=== PATIENT | male | born 1990 | race Caucasian/White ===

== ENCOUNTER 2016-04-12 16:54 | Emergency (ER) | payer SELFPAY ==
[2016-04-12 17:22] VITALS: BP 108/89
--- NOTE | 2016-04-12 17:41 | UC ---
Hand/Wrist HPI - HPI Summary HPI Summary: punched car window, broke it. Now worried that he may have glass in his hand, or may have broken his hand. Right-handed. - History Of Current Complaint Chief Complaint: [place] Stated Complaint: RIGHT HAND POSSIBLE FB Time Seen by Provider: 04/12/16 17:23 Hx Obtained From: Patient, Family/Pattern Vault Clerk - Onset/Duration: Sudden Onset, Lasting Hours - 2 Severity Initially: Moderate Severity Currently: Mild Character Of Pain: Dull, Aching, Throbbing, Stiffness Aggravating Factor(s): Movement Alleviating: Rest, Ice Associated Signs And Symptoms: Positive: Swelling - Risk Factors Compartment Syndrome Risk Factors: Pain - Allergies/Home Medications Allergies/Adverse Reactions: Allergies Allergy/AdvReac Type Severity Reaction Status Date / Time Bee Venom Allergy Anaphylatic Verified 04/12/16 17:17 Shock Cyclobenzaprine Allergy stomach Verified 04/12/16 17:17 upset Home Medications: Home Medications Epinephrine [Epipen 2-Luis] 0.3 mg IM SEE INSTRUCTIONS PRN 04/12/16 [History Confirmed 04/12/16] PMH/Surg Hx/FS Hx/Imm Hx Endocrine History Of: Denies: Diabetes, Thyroid Disease Cardiovascular History Of: Denies: Cardiac Disorders, Hypertension, Pacemaker/ICD Respiratory History Of: Denies: Asthma GI/ History Of: Reports: Kidney Stones Denies: Renal Disease - Surgical History Surgical History: Yes Surgery Procedure, Year, and Place: [place] Teeth Extraction, 2016, [place]; Ear Surgeries x 10; T&A, ~1994 - Family History Known Family History: Positive: Hypertension - Social History Occupation: Employed Full-time Lives: With Family Alcohol Use: None Substance Use Type: None Smoking Status (MU): Heavy Every Day Tobacco Smoker Type: Smokeless Tobacco Amount Used/How Often: 1/2 Can Per Day Length of Time of Smoking/Using Tobacco: 5 Years Have You Smoked in the Last Year: Yes Household Exposure Type: Cigarettes - Immunization History Most Recent Tetanus Shot: "thirteen" years ago Review of Systems Constitutional: Negative Skin: Other Eyes: Negative ENT: Negative Respiratory: Negative Cardiovascular: Negative Gastrointestinal: Negative Genitourinary: Negative Motor: Negative Neurovascular: Negative Musculoskeletal: Arthralgia, Decreased ROM Neurological: Negative Psychological: Negative All Other Systems Reviewed And Are Negative: Yes Physical Exam Triage Information Reviewed: Yes Appearance: Well-Appearing, No Pain Distress, Well-Nourished Vital Signs: Initial Vital Signs Temp 98.4 F 04/12/16 17:14 Pulse 84 04/12/16 17:14 Resp 16 04/12/16 17:14 BP 108/89 04/12/16 17:14 Pulse Ox 99 04/12/16 17:14 Vital Signs Reviewed: Yes Eye Exam: Normal Neck exam: Normal Respiratory Exam: Normal Cardiovascular Exam: Normal Abdominal Exam: Normal Musculoskeletal Exam: Other - right hand with diffuse swelling and tenderness over 5th MC. Shallow laceration at base of lateral 5th finger Neurological Exam: Normal Psychological Exam: Normal Skin Exam: Normal Diagnostics - Laboratory Diagnostic Studies Completed/Ordered: xray neg Hand/Wrist Course/Dx - Differential Dx/Diagnosis Differential Diagnosis/HQI/PQRI: Foreign Body, Fracture, Sprain Provider Diagnoses: contusion right hand Discharge - Discharge Plan Condition: Stable Disposition: HOME Patient Education Materials: Contusion in Adults (ED) Referrals: CARSNO Cameron [Primary Care Provider] -
[2016-04-12] MEDS ORDERED: Tetan/Diph/Pertus SYR(Tdap)* 0.5 ML SYR(BOOSTRIX) use SYR IM ONE (17:50)
--- NOTE | 2016-04-12 18:09 | RAD ---
Indication: Right Hand injury. Evaluate for foreign body or fracture. 4 views of the right hand demonstrates no evidence of a radiopaque foreign body. No definite fracture is identified. IMPRESSION: No fracture or radiopaque foreign body is identified.
== END 2016-04-12 18:05 | disposition home or self-care (01) ==
LOC: UCCORT 16:54
DX: S60.221A Contusion of right hand, initial encounter (principal); W25.XXXA Contact with sharp glass, initial encounter; Y93.9 Activity, unspecified; F17.210 Nicotine dependence, cigarettes, uncomplicated; Z23 Encounter for immunization
CPT/HCPCS: 90471; 90715; 99212; G0463

== ENCOUNTER 2016-04-19 11:58 | Emergency (ER) | payer SELFPAY ==
[2016-04-19 12:21] VITALS: BP 125/84
--- NOTE | 2016-04-19 12:36 | UC ---
UC General HPI - HPI Summary HPI Summary: patient is complaining of sharp stabbing left sided, woke him out of bed this morning. no pain at this time. it started on left flank and moved to the side, has hx of kidney stones. no fever. no dysuria. - History of Current Complaint Chief Complaint: UCAbdominalPain Stated Complaint: BACK PAIN Time Seen by Provider: 04/19/16 12:25 Hx Obtained From: Patient Onset/Duration: Sudden Onset, Lasting Hours Timing: Constant Onset Severity: Severe Current Severity: None Associated Signs & Symptoms: Positive: Back Pain - Allergy/Home Medications Allergies/Adverse Reactions: Allergies Allergy/AdvReac Type Severity Reaction Status Date / Time Bee Venom Allergy Anaphylatic Verified 04/19/16 12:18 Shock Cyclobenzaprine Allergy stomach Verified 04/19/16 12:18 upset PMH/Surg Hx/FS Hx/Imm Hx Previously Healthy: Yes Endocrine History Of: Denies: Diabetes, Thyroid Disease Cardiovascular History Of: Denies: Cardiac Disorders, Hypertension, Pacemaker/ICD Respiratory History Of: Denies: Asthma GI/ History Of: Reports: Kidney Stones Denies: Renal Disease - Surgical History Surgical History: Yes Surgery Procedure, Year, and Place: [place] Teeth Extraction, 2016, [place]; Ear Surgeries x 10; T&A, ~1993 - Family History Known Family History: Positive: Hypertension - Social History Alcohol Use: None Substance Use Type: None Smoking Status (MU): Heavy Every Day Tobacco Smoker Type: Smokeless Tobacco Amount Used/How Often: 1/2 Can Per Day Length of Time of Smoking/Using Tobacco: 5 Years Have You Smoked in the Last Year: Yes Household Exposure Type: Cigarettes - Immunization History Most Recent Influenza Vaccination: January 2016 Most Recent Tetanus Shot: 04/12/16 Review of Systems Constitutional: Negative Skin: Negative Eyes: Negative ENT: Negative Respiratory: Negative Cardiovascular: Negative Gastrointestinal: Negative Genitourinary: Negative Motor: Negative Musculoskeletal: Negative, Other: - left flank and side pain Neurological: Negative Psychological: Negative All Other Systems Reviewed And Are Negative: Yes Physical Exam Triage Information Reviewed: Yes Appearance: Well-Appearing, No Pain Distress, Well-Nourished Vital Signs: Initial Vital Signs Temp 98.2 F 04/19/16 12:15 Pulse 76 04/19/16 12:15 Resp 16 04/19/16 12:15 BP 125/84 04/19/16 12:15 Pulse Ox 98 04/19/16 12:15 Vital Signs Reviewed: Yes Eye Exam: Normal Eyes: Positive: Conjunctiva Clear ENT Exam: Normal ENT: Positive: Normal ENT inspection, Hearing grossly normal, Pharynx normal, TMs normal Dental Exam: Normal Neck exam: Normal Neck: Positive: Supple, Nontender, No Lymphadenopathy Respiratory Exam: Normal Respiratory: Positive: Chest non-tender, Lungs clear, Normal breath sounds Cardiovascular Exam: Normal Cardiovascular: Positive: RRR, No Murmur, Pulses Normal Abdomen Description: Positive: No Organomegaly, Soft, CVA Tenderness (L), Other : - no palpable masses, no organomegaly, tender in LLQ, last BM this moring Bowel Sounds: Positive: Present Musculoskeletal Exam: Normal Musculoskeletal: Positive: Strength Intact, ROM Intact, No Edema Neurological Exam: Normal Neurological: Positive: Alert Psychological Exam: Normal Skin Exam: Normal Course/Dx - Course Course Of Treatment: history obtained, exam performed, no difficulty urinating, currently pain is mild, like a muscle aches, but comes and goes with stabbing sensation. medications prescribed, UA positive for BLood. - Differential Dx - Multi-Symptom Differential Diagnoses: Urinary Tract Infection, Other - muscle strain, constipation, diverticulitis, kidnesy stone Provider Diagnoses: hematuria. left flank pain Discharge - Discharge Plan Condition: Stable Disposition: HOME Prescriptions: HYDROcodone/ACETAMIN 5-325 MG* [[place] 5-325 TAB*] 1 tab PO Q8H PRN #15 tab MDD 15 mg PRN Reason: Pain Tamsulosin CAP* [Flomax CAP*] 0.4 mg PO BEDTIME #10 cap Patient Education Materials: Kidney Stones (ED) Additional Instructions: Increse your fluid intake, take the medication as prescribed. use the pain medication when severe pain is happening. strain your urine, if symptoms persist follow up here, the ER or your doctors office.
== END 2016-04-19 13:04 | disposition home or self-care (01) ==
LOC: UCCORT 11:58
DX: M54.5 Low back pain (principal); R31.9 Hematuria, unspecified; Z87.442 Personal history of urinary calculi; Z88.8 Allergy status to other drugs, medicaments and biological substances; F17.210 Nicotine dependence, cigarettes, uncomplicated
CPT/HCPCS: 99212; G0463

== ENCOUNTER 2016-05-03 18:47 | Emergency (ER) | payer SELFPAY ==
[2016-05-03 19:05] VITALS: BP 129/67
--- NOTE | 2016-05-03 19:59 | UC ---
Respiratory Complaint HPI - HPI Summary HPI Summary: productive cough. SOB with exertion. Subjective fevers. ST and ear pressure. Girlfriend with same symptoms. No asthma. - History of Current Complaint Chief Complaint: UCRespiratory Stated Complaint: COUGH,FEVER Time Seen by Provider: 05/03/16 19:48 Hx Obtained From: Patient Onset/Duration: Gradual Onset, Lasting Days - 4 Timing: Constant Severity Currently: Mild Character: Cough: Productive Aggravating Factors: Exertion, Recumbent Position Associated Signs And Symptoms: Positive: Fever, Chills, Dizziness, URI, Nasal Congestion, Hoarseness, Sinus Discomfort - Risk Factors Pulmonary Embolism Risk Factors: Negative Cardiac Risk Factors: Negative Pseudomonas Risk Factors: Negative Tuberculosis Risk Factors: Negative - Allergies/Home Medications Allergies/Adverse Reactions: Allergies Allergy/AdvReac Type Severity Reaction Status Date / Time Bee Venom Allergy Anaphylatic Verified 05/03/16 19:05 Shock Cyclobenzaprine Allergy stomach Verified 05/03/16 19:05 upset PMH/Surg Hx/FS Hx/Imm Hx Previously Healthy: Yes Endocrine History Of: Denies: Diabetes, Thyroid Disease Cardiovascular History Of: Denies: Cardiac Disorders, Hypertension, Pacemaker/ICD Respiratory History Of: Denies: Asthma GI/ History Of: Reports: Kidney Stones Denies: Renal Disease - Surgical History Surgical History: Yes Surgery Procedure, Year, and Place: [place] Teeth Extraction, 2016, [place]; Ear Surgeries x 10; T&A, ~1993 - Family History Known Family History: Positive: Hypertension - Social History Occupation: Employed Full-time Lives: With Family Alcohol Use: None Substance Use Type: None Smoking Status (MU): Never Smoked Tobacco Type: Smokeless Tobacco Amount Used/How Often: 1/2 Can Per Day Length of Time of Smoking/Using Tobacco: 5 Years Have You Smoked in the Last Year: Yes Household Exposure Type: Cigarettes - Immunization History Most Recent Influenza Vaccination: January 2016 Most Recent Tetanus Shot: 04/12/16 Review of Systems Constitutional: Fever, Chills, Fatigue Skin: Negative Eyes: Negative ENT: Sore Throat, Ear Ache, Nasal Discharge Respiratory: Shortness Of Breath, Cough Cardiovascular: Negative Gastrointestinal: Negative Genitourinary: Negative Motor: Negative Neurovascular: Negative Musculoskeletal: Negative Neurological: Negative Psychological: Negative All Other Systems Reviewed And Are Negative: Yes Physical Exam Triage Information Reviewed: Yes Appearance: Well-Appearing, No Pain Distress, Well-Nourished Vital Signs: Initial Vital Signs Temp 99.6 F 05/03/16 19:00 Pulse 94 05/03/16 19:00 Resp 24 05/03/16 19:00 BP 129/67 05/03/16 19:00 Pulse Ox 98 05/03/16 19:00 Vital Signs Reviewed: Yes Eye Exam: Normal ENT: Positive: Pharyngeal erythema - mild, Nasal congestion, TM bulging, TM dull , TM red - lots of scarring bilat; pt says he has had numerous surgeries as a child, frequent OM as adult. Negative: Tonsillar swelling, Tonsillar exudate, Trismus, Muffled/hoarse voice Neck exam: Normal Neck: Positive: Supple Respiratory Exam: Normal Respiratory: Positive: Lungs clear, Normal breath sounds, No respiratory distress, No accessory muscle use Cardiovascular Exam: Normal Musculoskeletal Exam: Normal Neurological Exam: Normal Psychological Exam: Normal Skin Exam: Normal UC Diagnostic Evaluation - Laboratory O2 Sat by Pulse Oximetry: 98 Respiratory Course/Dx - Differential Dx/Diagnosis Differential Diagnosis/HQI/PQRI: Bronchitis, Lower Resp Infection, Sinusitis Provider Diagnoses: URI; bilat OM Discharge - Discharge Plan Condition: Stable Disposition: HOME Prescriptions: Azithromycin TAB* [Zithromax TAB (Z-JAKUB) 250 mg #6 tabs] 2 tab PO .TODAY, THEN 1 DAILY #1 jakub Guaifenesin-Codeine [Cheratussin AC] 1 - 2 teasp PO Q4HR PRN #120 ml MDD 30ml PRN Reason: Cough Patient Education Materials: Otitis Media (ED), Upper Respiratory Infection (ED ) Referrals: CARSON Cameron [Primary Care Provider] - Additional Instructions: The antibiotic will help clear up your ear infections, but it won't help with the cough. The cough is part of a viral illness, and those can drag on for several weeks
== END 2016-05-03 20:00 | disposition home or self-care (01) ==
LOC: UCCORT 18:47
DX: J06.9 Acute upper respiratory infection, unspecified (principal); H66.93 Otitis media, unspecified, bilateral; F17.220 Nicotine dependence, chewing tobacco, uncomplicated
CPT/HCPCS: 99212; G0463

== ENCOUNTER 2017-09-06 21:34 | Emergency (ER) | payer SELFPAY ==
[2017-09-06 21:47] VITALS: BP 125/87
--- NOTE | 2017-09-06 22:07 | ED ---
Skin Complaint - HPI Summary HPI Summary: 26 yr old with irritation to right anterior ankle and also to posterior left ankle. he was out playing ball in tall grass, and has itching to these localized spots. No redness, no other symptoms. - History of Current Complaint Chief Complaint: UCSkin Time Seen by Provider: 09/06/17 21:59 Stated Complaint: SKIN COMPLAINT Pain Intensity: 6 - Allergy/Home Medications Allergies/Adverse Reactions: Allergies Allergy/AdvReac Type Severity Reaction Status Date / Time MS Bee Venom [Bee Venom] Allergy Anaphylatic Verified 05/03/16 19:05 Shock MS Cyclobenzaprine Allergy stomach Verified 05/03/16 19:05 [Cyclobenzaprine] upset Home Medications: Home Medications Ranitidine TAB (NF) [Zantac TAB (NF)] 1 tab DAILY 09/06/17 [History Confirmed ] PMH/Surg Hx/FS Hx/Imm Hx Endocrine/Hematology History: Denies: Hx Diabetes, Hx Thyroid Disease Cardiovascular History: Denies: Hx Hypertension, Hx Pacemaker/ICD Respiratory History: Denies: Hx Asthma History: Reports: Hx Kidney Stones Denies: Hx Renal Disease Musculoskeletal History: Reports: Other Musculoskeletal History - R shoulder pain Sensory History: Denies: Hx Hearing Aid Psychiatric History: Denies: Hx Panic Disorder - Surgical History Surgery Procedure, Year, and Place: [place] Teeth Extraction, 2016, [place]; Ear Surgeries x 10; T&A, ~1993 Infectious Disease History: No Infectious Disease History: Denies: Traveled Outside the [place] in Last 30 Days - Family History Known Family History: Positive: Hypertension - Social History Alcohol Use: None Substance Use Type: Reports: None Smoking Status (MU): Never Smoked Tobacco Type: Smokeless Tobacco Amount Used/How Often: 1/2 Can Per Day Length of Time of Smoking/Using Tobacco: 5 Years Have You Smoked in the Last Year: Yes Review of Systems Constitutional: Negative Positive: Other - bug bites All Other Systems Reviewed And Are Negative: Yes Physical Exam Triage Information Reviewed: Yes Vital Signs On Initial Exam: Initial Vitals Temp Pulse Resp BP Pulse Ox 97.4 F 83 15 125/87 100 09/06/17 21:44 09/06/17 21:44 09/06/17 21:44 09/06/17 21:44 09/06/17 21:44 Vital Signs Reviewed: Yes Appearance: Positive: Obese Skin: Positive: Warm, Skin Color Reflects Adequate Perfusion, Other - bug bites right anterior ankle and left posterior ankle , no cellulitis. Eyes: Positive: EOMI ENT: Positive: Normal ENT inspection Respiratory/Lung Sounds: Positive: Clear to Auscultation Cardiovascular: Positive: RRR, Pulses are Symmetrical in both Upper and Lower Extremities. Negative: Murmur Abdomen Description: Negative: Distended Musculoskeletal: Positive: Strength/ROM Intact. Negative: Edema Left, Edema Right Neurological: Positive: Sensory/Motor Intact, Alert, Oriented to Person Place, Time, CN Intact II-III Psychiatric: Positive: Normal - [place] Coma Scale Best Eye Response: 4 - Spontaneous Best Motor Response: 6 - Obeys Commands Best Verbal Response: 5 - Oriented Coma Scale Total: 15 Diagnostics - Vital Signs Vital Signs Temp Pulse Resp BP Pulse Ox 09/06/17 21:44 97.4 F 83 15 125/87 100 - Laboratory Lab Statement: Any lab studies that have been ordered have been reviewed, and results considered in the medical decision making process. Course/Dx - Course Course Of Treatment: 26 yr old with self limited bug bites. DC home. - Diagnoses Provider Diagnoses: Bug bites Discharge - Sign-Out/Discharge Documenting (check all that apply): Discharge/Admit/Transfer - Discharge Plan Condition: Good Disposition: HOME Patient Education Materials: Insect Bite or Sting (ED) Referrals: CARSON Cameron [Primary Care Provider] - - Billing Disposition and Condition Condition: GOOD Disposition: Home
== END 2017-09-06 22:12 | disposition home or self-care (01) ==
LOC: UCCORT 21:34
DX: S90.562A Insect bite (nonvenomous), left ankle, initial encounter (principal); S90.561A Insect bite (nonvenomous), right ankle, initial encounter; W57.XXXA Bitten or stung by nonvenomous insect and other nonvenomous arthropods, initial encounter; Y93.9 Activity, unspecified; Y99.9 Unspecified external cause status; Z88.8 Allergy status to other drugs, medicaments and biological substances; Z91.030 Bee allergy status
CPT/HCPCS: 99211; G0463

== ENCOUNTER 2017-12-18 18:38 | Emergency (ER) | payer OTHER ==
[2017-12-18 19:24] VITALS: BP 113/70
--- NOTE | 2017-12-18 19:30 | UC ---
Respiratory Complaint HPI - HPI Summary HPI Summary: 27 yo male presents with right axillary/rib pain for the last 4 days. He tells me that 4 days ago he woke up with this pain. Does not recall an injury. Since that time the area hurts with movement and with taking deep breaths. He feels better when he is laying flat and not moving. He says his father has a hx of PE and he is concerned about this. He has taken ibuprofen for his pain with no relief. Denies fever, chills, recent illness, hx of clots, chest pain, SOB, cough, abdominal pain, n/v. - History of Current Complaint Chief Complaint: UCGeneralIllness Stated Complaint: RIGHT SIDED CHEST/ABDOMINAL PAIN Time Seen by Provider: 12/18/17 19:30 Hx Obtained From: Patient Severity Initially: Severe Severity Currently: Severe Pain Intensity: 9 Pain Scale Used: 0-10 Numeric - Allergies/Home Medications Allergies/Adverse Reactions: Allergies Allergy/AdvReac Type Severity Reaction Status Date / Time bee venom protein (honey bee) Allergy Anaphylatic Verified 12/18/17 19:24 Shock cyclobenzaprine Allergy GI Upset Verified 12/18/17 19:24 PMH/Surg Hx/FS Hx/Imm Hx GI/ History: Gastroesophageal Reflux - Surgical History Surgical History: Yes Surgery Procedure, Year, and Place: [place] Teeth Extraction, 2016, [place]; Ear Surgeries x 10; T&A, ~1993 - Family History Known Family History: Positive: Hypertension - Social History Lives: With Family Alcohol Use: None Substance Use Type: None Smoking Status (MU): Never Smoked Tobacco Type: Smokeless Tobacco Amount Used/How Often: 1/2 Can Per Day Length of Time of Smoking/Using Tobacco: 5 Years Have You Smoked in the Last Year: Yes Household Exposure Type: Cigarettes - Immunization History Most Recent Influenza Vaccination: January 2016 Most Recent Tetanus Shot: 04/12/16 Review of Systems Constitutional: Negative Skin: Negative Respiratory: Negative Cardiovascular: Negative Gastrointestinal: Negative Neurovascular: Negative Musculoskeletal: Other: - Right rib pain Neurological: Negative Psychological: Negative All Other Systems Reviewed And Are Negative: Yes Physical Exam - Summary Physical Exam Summary: GENERAL: NAD. WDWN. No pain distress. SKIN: No rashes, sores, lesions, or open wounds. CHEST: No accessory muscle use. Breathing comfortably and in no distress. CV: Pulses intact radial and ulnar. Cap refill <2seconds ABDOMEN: Soft. NTTP. No distention or guarding. No organomegaly. No CVA tenderness. Bowel sounds present MSK: RIGHT side: Midaxillary approx 5-6th rib with mild TTP. Pain reproduced with deep breath and with extending arms above head. UEs FROM. Strength 5/5 including plasterer spot strength. NEURO: Alert. Sensations intact hand and all fingers. PSYCH: Age appropriate behavior. Triage Information Reviewed: Yes Vital Signs: Initial Vital Signs Temp 98.2 F 12/18/17 19:18 Pulse 75 12/18/17 19:18 Resp 16 12/18/17 19:18 BP 113/70 12/18/17 19:18 Pulse Ox 100 12/18/17 19:18 Vital Signs Reviewed: Yes UC Diagnostic Evaluation - Laboratory O2 Sat by Pulse Oximetry: 100 Respiratory Course/Dx - Course Course Of Treatment: CXR: No radiologist reading after 1800 therefore wet read by myself: poor inspiration, no acute disease noted. Suspect muscle strain. Advised pt to apply heat to the area and will try robaxin for discomfort. F/u with PCP if symptoms persist. Discussed that his risk for PE is low, but if he is concerned about this he should be more appropriately evaluated in the ED - he did not want to do this. - Differential Dx/Diagnosis Provider Diagnoses: Right side muscle strain Discharge - Sign-Out/Discharge Documenting (check all that apply): Patient Departure All imaging exams completed and their final reports reviewed: No - Discharge Plan Condition: Stable Disposition: HOME Prescriptions: Methocarbamol TAB* [Robaxin 500 MG TAB*] 500 mg PO TID PRN #21 tab PRN Reason: Pain Patient Education Materials: Muscle Strain (DC) Referrals: Jose Villa PA [Primary Care Provider] - Additional Instructions: If you develop a fever, shortness of breath, chest pain, new or worsening symptoms - please call your PCP or go to the ED. - Billing Disposition and Condition Condition: STABLE Disposition: Home
--- NOTE | 2017-12-19 07:24 | RAD ---
INDICATION: Right-sided chest pain x3 days COMPARISON: Most recent comparison chest x-rays dated April 09, 2013 TECHNIQUE: PA and lateral views of the chest were obtained. FINDINGS: The heart and mediastinum are normal in size and contour. The lungs are grossly clear. There is no evidence of large pleural effusion. Visualized bones are normal for the patient's age. There is no radiographic evidence of free air beneath the diaphragm IMPRESSION: No radiographic evidence of acute cardiopulmonary disease. R0
--- NOTE | 2017-12-19 11:57 | UC ---
- Progress Note Progress Note: Patient Name: TERRI BURNHAM Medical Record#: [id number] Ordering Physician: Jabier GALLAGHER Acct.#: [id number] : 1990 Age: 27 Sex: M Location: [facility] Exam Date: 12/18/171933 ADM Status: DEP ER Order Information: CHEST PA & LAT 2 VWS Accession Number: [id number] CPT: 84027 INDICATION: Right-sided chest pain x3 days COMPARISON: Most recent comparison chest x-rays dated April 09, 2013 TECHNIQUE: PA and lateral views of the chest were obtained. FINDINGS: The heart and mediastinum are normal in size and contour. The lungs are grossly clear. There is no evidence of large pleural effusion. Visualized bones are normal for the patient's age. There is no radiographic evidence of free air beneath the diaphragm IMPRESSION: No radiographic evidence of acute cardiopulmonary disease. R0 <Electronically signed by Madhav Escobedo MD in [place]> 12/19/17720 Dictated By: Madhav Escobedo MD Dictated Date/Time: 12/19/17720 Transcribed Date/Time: 12/19/17719 Copy to: CC:Kathie Zayas MD; Jose GALLAGHER; Jabier GALLAGHER Imaging - [facility] Imaging [facility] Urgent [facility] [address] [place] [address] ph ([phone]) ph ([phone]) ph ([phone]) This report is only to be considered final once signed by the Provider(s) as displayed in the "<Electronically Signed by >" field (s). Absence of a signature indicates the report is in a draft status and still needs to be finalized. In the event this document was created by someone other than the signing Provider, the individual initiating the document will be listed in the "Entered by:" or "Dictated by:" moreau. 1 of 1 Discharge - Sign-Out/Discharge Documenting (check all that apply): Post-Discharge Follow Up All imaging exams completed and their final reports reviewed: Yes - Discharge Plan Condition: Stable Disposition: HOME Prescriptions: Methocarbamol TAB* [Robaxin 500 MG TAB*] 500 mg PO TID PRN #21 tab PRN Reason: Pain Patient Education Materials: Muscle Strain (DC) Referrals: Jose Villa PA [Primary Care Provider] - Additional Instructions: If you develop a fever, shortness of breath, chest pain, new or worsening symptoms - please call your PCP or go to the ED. - Billing Disposition and Condition Condition: STABLE Disposition: Home
--- NOTE | 2017-12-20 17:43 | UC ---
Discharge - Sign-Out/Discharge Documenting (check all that apply): Post-Discharge Follow Up All imaging exams completed and their final reports reviewed: Yes - Discharge Plan Condition: Stable Disposition: HOME Prescriptions: Methocarbamol TAB* [Robaxin 500 MG TAB*] 500 mg PO TID PRN #21 tab PRN Reason: Pain Patient Education Materials: Muscle Strain (DC) Referrals: Jose Villa PA [Primary Care Provider] - Additional Instructions: If you develop a fever, shortness of breath, chest pain, new or worsening symptoms - please call your PCP or go to the ED. - Billing Disposition and Condition Condition: STABLE Disposition: Home
== END 2017-12-18 20:02 | disposition home or self-care (01) ==
LOC: UCCORT 18:38
DX: S29.011A Strain of muscle and tendon of front wall of thorax, initial encounter (principal); Z88.8 Allergy status to other drugs, medicaments and biological substances; Z91.030 Bee allergy status; X58.XXXA Exposure to other specified factors, initial encounter; Y92.9 Unspecified place or not applicable
CPT/HCPCS: 71046; 99212; G0463

== ENCOUNTER 2018-01-13 10:59 | Emergency (ER) | payer OTHER ==
[2018-01-13 12:02] VITALS: BP 117/74
--- NOTE | 2018-01-13 12:27 | UC ---
General HPI - HPI Summary HPI Summary: slipped on a rung and slid down his deer stand about 6 feet injuring his L ankle 9:30 this am. - History of Current Complaint Chief Complaint: UCLowerExtremity Stated Complaint: LEFT ANKLE INJURY Time Seen by Provider: 01/13/18 12:00 Hx Obtained From: Patient, Family/Autobody Technician Onset/Duration: Sudden Onset Timing: Constant Pain Intensity: 10 Aggravating: ambulation Associated Signs & Symptoms: Positive: Other - pain/swelling L ankle - Allergy/Home Medications Allergies/Adverse Reactions: Allergies Allergy/AdvReac Type Severity Reaction Status Date / Time bee venom protein (honey bee) Allergy Anaphylatic Verified 01/13/18 11:59 Shock cyclobenzaprine Allergy GI Upset Verified 01/13/18 11:59 PMH/Surg Hx/FS Hx/Imm Hx GI/ History: Gastroesophageal Reflux - Surgical History Surgical History: Yes Surgery Procedure, Year, and Place: [place] Teeth Extraction, 2015, [place]; Ear Surgeries x 12; T&A, ~1993 - Family History Known Family History: Positive: Hypertension - Social History Occupation: Employed Full-time Lives: With Family Alcohol Use: Rare Substance Use Type: Marijuana Substance Use Comment - Amount & Last Used: rarely Smoking Status (MU): Heavy Every Day Tobacco Smoker Type: Smokeless Tobacco Amount Used/How Often: 1/2 Can Per Day Length of Time of Smoking/Using Tobacco: 5 Years Have You Smoked in the Last Year: Yes Household Exposure Type: Cigarettes - Immunization History Most Recent Influenza Vaccination: January 2016 Most Recent Tetanus Shot: 04/12/16 Vaccination Up to Date: Yes Review of Systems Constitutional: Negative Skin: Negative Eyes: Negative ENT: Negative Respiratory: Negative Cardiovascular: Negative Gastrointestinal: Negative Genitourinary: Negative Motor: Negative Neurovascular: Negative Musculoskeletal: Other: - pain L ankle./ no back or hip pain. Neurological: Negative Psychological: Negative Is Patient Immunocompromised?: No All Other Systems Reviewed And Are Negative: Yes Physical Exam Triage Information Reviewed: Yes Appearance: Well-Appearing Vital Signs: Initial Vital Signs Temp 98.4 F 01/13/18 11:54 Pulse 93 01/13/18 11:54 Resp 17 01/13/18 11:54 BP 117/74 01/13/18 11:54 Pulse Ox 98 01/13/18 11:54 Vital Signs Reviewed: Yes Eyes: Positive: Conjunctiva Clear ENT: Positive: Normal ENT inspection Neck: Positive: Supple, Nontender, No Lymphadenopathy Respiratory: Positive: Chest non-tender, Lungs clear, Normal breath sounds Cardiovascular: Positive: RRR, No Murmur Abdomen Description: Positive: Nontender, No Organomegaly, Soft Bowel Sounds: Positive: Present Musculoskeletal: Positive: Other: - Cervical, thoracic and lumbar spine are without deformity or tenderness. Pelvis is without instability or tenderness. Left lower extremity hip, knee and Achilles are without deformity or tenderness. Left ankle has mild swelling and generalized tenderness. Left proximal medial foot has mild swelling and tenderness. Toes have gross sensorivascular motor function. Neurological: Positive: Alert Psychological: Positive: Age Appropriate Behavior Skin Exam: Normal Diagnostics - Radiology No standard instances Radiology Interpretation Completed By: Radiologist - IMPRESSION: No fracture of the left ankle is noted. Soft tissue swelling is noted laterally. IMPRESSION: No fracture of the left foot is noted. Course/Dx - Course Course Of Treatment: no fx/dislocation L ankle/foot - Differential Dx - Multi-Symptom Provider Diagnoses: Sprain L ankle. Sprain L foot Discharge - Sign-Out/Discharge Documenting (check all that apply): Patient Departure All imaging exams completed and their final reports reviewed: Yes - Discharge Plan Condition: Stable Disposition: HOME Patient Education Materials: Ankle Sprain (ED), Foot Sprain (ED) Forms: *Work Release Referrals: Nayan March MD [Medical Doctor] - 7 Days Additional Instructions: USE CAM BOOT UNTIL CLEARED. - Billing Disposition and Condition Condition: STABLE Disposition: Home
--- NOTE | 2018-01-13 12:37 | RAD ---
Indication: Left foot pain. 3 views of left foot are reviewed. There is no fracture or dislocation. No other bone or joint abnormality is identified. IMPRESSION: No fracture of the left foot is noted.
--- NOTE | 2018-01-13 12:37 | RAD ---
Indication: Left ankle pain. 3 views of left ankle demonstrates no fracture. No joint effusion is noted. No other bone or joint abnormality is identified. IMPRESSION: No fracture of the left ankle is noted. Soft tissue swelling is noted laterally.
== END 2018-01-13 12:58 | disposition home or self-care (01) ==
LOC: UCCORT 10:59
DX: S93.602A Unspecified sprain of left foot, initial encounter (principal); S93.402A Sprain of unspecified ligament of left ankle, initial encounter; W11.XXXA Fall on and from ladder, initial encounter; Y93.89 Activity, other specified; Y92.89 Other specified places as the place of occurrence of the external cause; Z88.8 Allergy status to other drugs, medicaments and biological substances; F17.210 Nicotine dependence, cigarettes, uncomplicated
CPT/HCPCS: 99212; G0463